=== PATIENT | male | born 2000 | race Caucasian/White ===

== ENCOUNTER 2022-01-24 12:33 | Emergency (ER) | payer SELFPAY ==
[2022-01-24] MEDS ORDERED: Boostrix 0.5 ML (Tdap) VIAL ONE (12:48)
[2022-01-24] MEDS ORDERED: Lidocaine 1% (PF) 30 ML VIAL ONE (12:48)
== END 2022-01-24 13:55 | disposition home or self-care (01) ==
LOC: ERS 12:33
DX: S91.111A Laceration without foreign body of right great toe without damage to nail, initial encounter (principal); W26.8XXA Contact with other sharp object(s), not elsewhere classified, initial encounter; Y93.01 Activity, walking, marching and hiking; Z23 Encounter for immunization
CPT/HCPCS: 12002; 90471; 90715; J2001